=== PATIENT | female | born 1950 | race Two or more races ===

== ENCOUNTER 2019-04-22 20:53 | Emergency (ER) | payer MEDICARE, MEDICAID ==
[~2019-04-22] VITALS: Ht 154.9 cm; Wt 45.4 kg
[2019-04-22 21:21] VITALS: BP 179/82
--- NOTE | 2019-04-22 21:34 | Emergency Room Report ---
History of Present Illness General Chief Complaint: Upper Respiratory Illness Source: Patient, Family Member, EMS Present Illness HPI This is a 68-year-old female with his high blood pressure patient presents with chief complaint of cough and congestion and shortness of breath. Onset for 6 days now. Getting worse. Coughing is a lot of phlegm. Worse with inspiration. [place] like she cannot breathe and tightness in her throat. No nausea no vomiting. No fever chills. Has chest tightness from the coughing. Allergies: Coded Allergies: No Known Allergies (Unverified , 04/22/19) Patient History Past Medical History: see triage record, old chart reviewed, HTN Past Surgical History: none Pertinent Family History: none Social History: Denies: smoking Now: No Immunizations: other Reviewed Nursing Documentation: PMH: Agreed; PSxH: Agreed Nursing Documentation-PMH Past Medical History: No History, Except For Review of Systems Eye: Denies: eye pain, blurred vision ENT: Denies: ear pain, nose congestion, throat swelling Respiratory: Reports: cough, shortness of breath Cardiovascular: Denies: chest pain, palpitations Gastrointestinal: Denies: abdominal pain, diarrhea, nausea, vomiting Musculoskeletal: Denies: back pain, joint pain Skin: Denies: rash Neurological: Denies: headache, numbness Endocrine: Denies: increased thirst, increased urine Hematologic/Lymphatic: Denies: easy bruising All Other Systems: negative except mentioned in HPI Physical Exam Vital Signs Date Time Temp Pulse Resp B/P (MAP) Pulse Ox O2 Delivery O2 Flow Rate FiO2 04/22/19 20:48 97.9 98 16 179/82 (114) 92 04/22/19 21:21 Room Air Vitals with high blood pressure Sp02 EP Interpretation: reviewed, normal General Appearance: well appearing, no apparent distress, alert Head: normocephalic, atraumatic Eyes: bilateral eye PERRL, bilateral eye EOMI ENT: hearing grossly normal, normal pharynx Neck: full range of motion, supple, no meningismus Respiratory: chest non-tender, lungs clear, normal breath sounds, decreased breath sounds, other - Coughing with inspiration Cardiovascular #1: regular rate, rhythm, no murmur Gastrointestinal: normal bowel sounds, non tender, no mass, no organomegaly, no bruit, non-distended Musculoskeletal: back normal, gait/station normal, normal range of motion Psychiatric: anxious Medical Decision Making Diagnostic Impression: Primary Impression: Dyspnea Qualified Codes: R06.00 - Dyspnea, unspecified Additional Impressions: Cough Small airways disease ER Course Patient presents with shortness of breath. No evidence of ACS, PE, dissection to name a few. Blood pressure much improved. She was very anxious and much improved on Ativan. She says she felt better after breathing treatment. When she is sleeping her oxygenation went down to 88 to 90% on room air. CT scan of the chest negative for PE. It did show mild centrilobular emphysema. 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 She herself does not smoke. EKG Diagnostic Results Rate: normal Rhythm: NSR ST Segments: no acute changes Rhythm Strip Diag. Results EP Interpretation: yes Rate: 69 Rhythm: NSR, no PVC's, no ectopy Chest X-Ray Diagnostic Results Chest X-Ray Diagnostic Results : Chest X-Ray Ordered: Yes # of Views/Limited/Complete: 1 View Indication: Shortness of Breath Interpretation: no consolidation, no effusion, no pneumothorax, other - atelectasis at bases Impression: Other - atelectasis Electronically Signed by: Brady Garcia MD CT/MRI/US Diagnostic Results CT/MRI/US Diagnostic Results : Imaging Test Ordered: CT chest Impression Read by radiologist. Negative for PE. Mild cardiomegaly. Mild bilateral centrilobular emphysema. Multiple cluster of bilateral tiny centrilobular nodules most consistent with small airway disease. Last Vital Signs Date Time Temp Pulse Resp B/P (MAP) Pulse Ox O2 Delivery O2 Flow Rate FiO2 04/22/19 21:21 97.9 98 16 179/82 92 Room Air Status: improved Disposition: HOME, SELF-CARE Condition: Improved Scripts Azithromycin* (ZITHROMAX*) 250 Mg Tablet 250 MG ORAL DAILY, #6 TAB 0 Refills Take two tables once daily for 1 day, then one tablet once daily for 4 days. Prov: Brady Garcia MD 04/23/19 Prednisone* (PREDNISONE*) 20 Mg Tablet 40 MG ORAL DAILY, #10 TAB Prov: Brady Garcia MD 04/23/19 Albuterol Sulfate* (ALBUTEROL SULFATE MDI*) 8.5 Gm Hfa.aer.ad 2 PUFF INH Q4H PRN for cough/wheezing, #1 EA 0 Refills Prov: Brady Garcia MD 04/23/19 Patient Instructions: Upper Respiratory Infection, Adult Additional Instructions: Follow-up with your doctor in 2 days for recheck. Return if worse. Brady Garcia MD Apr 22, 2019 21:34
[2019-04-22 21:43] LABS: BASOPHILS % (AUTO) 1.4 % (0.0-2.0); HEMATOCRIT 42.4 % (37.0-47.0); HEMOGLOBIN 14.8 G/DL (12.0-16.0); LYMPHOCYTES % (AUTO) 34.7 % (20.0-45.0); MEAN CORPUSCULAR VOLUME 89 FL (80-99); NEUTROPHILS % (AUTO) 54.9 % (45.0-75.0); PLATELET COUNT 250 K/UL (150-450); RED BLOOD COUNT 4.77 M/UL (4.20-5.40); RED CELL DISTRIBUTION WIDTH 10.4 % (11.6-14.8); WHITE BLOOD COUNT 11.1 K/UL (4.8-10.8)
[2019-04-22] MEDS ORDERED: Albuterol ud Inhalation HHN ONE (21:45)
[2019-04-22] MEDS ORDERED: LORazepam Inj 2mg/ml 1ml IV ONE (21:45)
[2019-04-22 21:57] LABS: APPEARANCE,URINE CLEAR; BILIRUBIN, URINE NEGATIVE (NEGATIVE); COLOR,URINE PALE YELLOW; GLUCOSE, URINE (UA) NEGATIVE (NEGATIVE); KETONES,URINE NEGATIVE (NEGATIVE); LEUKOCYTE ESTERASE ,URINE NEGATIVE (NEGATIVE); NITRITE,URINE NEGATIVE (NEGATIVE); PH,URINE 7 (4.5-8.0); PROTEIN,URINE NEGATIVE (NEGATIVE); UROBILINOGEN,URINE NORMAL MG/DL (0.0-1.0)
[2019-04-22 22:22] LABS: ANION GAP 10 mmol/L (5-15); BLOOD UREA NITROGEN 14 mg/dL (7-18); CALCIUM 8.9 MG/DL (8.5-10.1); CARBON DIOXIDE 26 MMOL/L (21-32); CHLORIDE 98 MMOL/L (98-107); CREATININE 0.8 MG/DL (0.55-1.30); POTASSIUM 3.5 MMOL/L (3.5-5.1); SODIUM 134 MMOL/L (136-145)
[2019-04-22 22:33] LABS: ALANINE AMINOTRANSFERASE 23 U/L (12-78); ALBUMIN 3.7 G/DL (3.4-5.0); ALBUMIN/GLOBULIN RATIO 0.8 (1.0-2.7); ALKALINE PHOSPHATASE 83 U/L (46-116); ASPARTATE AMINO TRANSFERASE 27 U/L (15-37); BILIRUBIN,TOTAL 0.4 MG/DL (0.2-1.0)
[2019-04-22] MEDS ORDERED: UNOBMED (22:52)
[2019-04-22] MEDS ORDERED: Omnipaue 350mg/ml 100ml vial INJ PRN (23:00)
[2019-04-22 23:14] VITALS: BP 140/65
--- NOTE | 2019-04-22 23:52 | Diagnostic Imaging Report ---
Indication: Shortness of breath Technique: Continuous helical transaxial imaging of the chest was obtained from the thoracic inlet to the upper abdomen during rapid intravenous contrast administration. Arterial phase of enhancement obtained. Coronal 2-D reformats were also obtained and maximum intensity projection images in multiple planes. Study obtained in a Siemens sensation [address] Automatic Exposure Control was utilized. Total Dose length Product (DLP): [address] Dose Index Volume (CTDIvol): 90.90 mGy Comparison: None Findings: Pulmonary artery is a well opacified. The aorta is mildly ectatic. Mild patchy groundglass opacities demonstrated within the lungs nonspecific in nature. No adenopathy seen. The visualized part of the upper abdomen is unremarkable. IMPRESSION: No evidence of pulmonary embolus, aortic dissection or aneurysm. Mild atherosclerotic vascular disease noted. Mild groundglass opacification of the lungs nonspecific. Findings could be due to mild interstitial edema or could be inflammatory. Recommend follow-up chest x-ray and clinical correlation. The CT scanner at [facility] is accredited by the [employer] and the scans are performed using dose optimization techniques as appropriate to a performed exam including Automatic Exposure control.
[2019-04-23] MEDS ORDERED: ALBUTEROL SULF8.5 GM INH (00:08)
[2019-04-23] MEDS ORDERED: ZITHROMAX250 MG ORAL (00:08)
[2019-04-23] MEDS ORDERED: PREDNISONE20 MG ORAL (00:08)
[2019-04-23] MEDS ORDERED: Solu-MEDROL 125mg Inj IVP ONE (00:15)
[2019-04-23] MEDS ORDERED: Albuterol ud Inhalation HHN ONE (00:15)
[2019-04-23] MEDS ORDERED: cefTRIAXone 1 GM in NS 55 ML IVPB ONE (00:15)
[2019-04-23 00:50] VITALS: BP 140/65
--- NOTE | 2019-04-23 12:55 | Diagnostic Imaging Report ---
Indication: Dyspnea Comparison: None A single view chest radiograph was obtained. Findings: Lung volumes are low. Heart is borderline enlarged. Basilar infiltrates versus atelectasis demonstrated with ill-defined interstitial type densities noted and prominent at the bases. The bones are osteopenic. IMPRESSION: Interstitial prominence at the lung bases. Pneumonia not excluded. Correlate clinically
== END 2019-04-23 00:50 | disposition home or self-care (01) ==
LOC: EDBD 20:53 → EMR 23:59
DX: R06.00 Dyspnea, unspecified (principal); R05 Cough; J98.8 Other specified respiratory disorders
CPT/HCPCS: 36415; 71045; 71275; 80053; 81003; 83880; 84484; 85025; 93005; 94640; 94664; 96361; 96365; 96375; 99284; J0696; J1940; J2930; Q9967; J7030

== ENCOUNTER 2019-11-25 21:06 | Emergency (ER) | payer MEDICARE, MEDICAID ==
[~2019-11-25] VITALS: Ht 162.6 cm; Wt 59.0 kg
[~2019-11-25 21:06] MED LIST: ALBUTEROL SULF8.5 GM INH; PREDNISONE20 MG ORAL; UNOBMED; ZITHROMAX250 MG ORAL
[2019-11-25 21:43] VITALS: BP 163/87
[2019-11-25] MEDS ORDERED: Omnipaque-300 100ml vial INJ ONE (22:15)
--- NOTE | 2019-11-25 22:41 | Emergency Room Report ---
History of Present Illness General Chief Complaint: Chest Pain Source: Patient (Acosta Buckner MD) Present Illness HPI Patient is a 69-year-old female who presents for increased chest pain. Patient had onset of symptoms several months ago. Associated shortness of breath and weight loss. Had previous CT imaging which showed some interstitial lung disease. Reports having weight loss. Had previous imaging studies at this facility. Increased chest discomfort. Some difficulty with swallowing. (Acosta Buckner MD) Allergies: Coded Allergies: No Known Allergies (Unverified , 04/22/19) COVID-19 Screening Contact w/high risk pt: No Recent Travel to affected area: No Experienced COVID-19 symptoms?: No COVID-19 symptoms experienced: Shortness of Breath COVID-19 Testing performed G[employer] STATION CLERK: No (Acosta Buckner MD) Patient History Past Medical History: see triage record Last Menstrual Period: na Reviewed Nursing Documentation: PMH: Agreed; PSxH: Agreed (Acosta Buckner MD) Nursing Documentation-PMH Hx Hypertension: Yes Hx COPD: Yes - bronchitis (Acosta Buckner MD) Review of Systems All Other Systems: negative except mentioned in HPI (Acosta Buckner MD) Physical Exam Vital Signs Date Time Temp Pulse Resp B/P (MAP) Pulse Ox O2 Delivery O2 Flow Rate FiO2 11/25/19 21:07 98.1 81 18 175/96 (122) 95 Room Air Sp02 EP Interpretation: reviewed, normal General Appearance: normal inspection, alert, GCS 15, Chronically Ill Head: atraumatic ENT: normal ENT inspection, hearing grossly normal, normal voice Neck: normal inspection, full range of motion, supple, no bony tend Respiratory: normal inspection, lungs clear, normal breath sounds, no respiratory distress, no retraction, no wheezing Cardiovascular #1: regular rate, rhythm, no edema Gastrointestinal: normal inspection, normal bowel sounds, non tender, soft, no guarding, no hernia Genitourinary: no CVA tenderness Musculoskeletal: normal inspection, back normal, normal range of motion Neurologic: alert, motor strength/tone normal, nurse private duty III-XII nml as tested, responsive, speech normal, normal inspection Psychiatric: normal inspection, judgement/insight normal, mood/affect normal (Acosta Buckner MD) Medical Decision Making Diagnostic Impression: Primary Impression: Chest pain Qualified Codes: R07.9 - Chest pain, unspecified ER Course Presented for shortness of breath. Differential diagnosis include was not limited to myocardial infarction, pneumonia, among others. EKG interpreted by me showed normal sinus rhythm with a rate of [address] or T wave changes. CT imaging was ordered due to patient's prior history of lung abnormalities. Patient does not have any recent fever suggest coronavirus infection.Patient appears to be clinically stable however given the patient's shortness of breath imaging was ordered. Patient was endorsed to for further evaluation and follow-up on CT imaging. Patient appears to be clinically stable. (Acosta Buckner MD) ER Course Patient presents with chest pain. She is signed out to me pending CT scan report. Labs unremarkable. CT scan showed chronic changes no acute process. No PE. Will discharge home. (Brady Garcia MD) EKG Diagnostic Results Rate: normal Rhythm: NSR ST Segments: no acute changes (Acosta Buckner MD) CT/MRI/US Diagnostic Results CT/MRI/US Diagnostic Results : Imaging Test Ordered: CT chest Impression Read by radiologist. No PE or dissection. Right lung small nodular densities. May be chronic versus infection/inflammation. (Brady Garcia MD) Last Vital Signs Date Time Temp Pulse Resp B/P (MAP) Pulse Ox O2 Delivery O2 Flow Rate FiO2 11/25/19 21:43 98.1 18 163/87 95 Room Air 11/25/19 21:43 81 (Acosta Buckner MD) Status: improved (Brady Garcia MD) Disposition: HOME, SELF-CARE Condition: Stable Scripts Ibuprofen* (MOTRIN*) 600 Mg Tablet 600 MG ORAL Q6H PRN for FOR PAIN, #20 TAB 0 Refills Prov: Brady Garcia MD 11/25/19 Albuterol Sulfate* (Albuterol Sulfate Hfa*) 8.5 Gm Hfa.aer.ad 2 PUFF INH Q4H, #1 INH Prov: Brady Garcia MD 11/25/19 Referrals: NON PHYSICIAN (PCP) Patient Instructions: Nonspecific Chest Pain Additional Instructions: Follow-up with your doctor in 7 days. Return if symptoms worsen. Acosta Buckner MD Nov 25, 2019 22:41 Brady Garcia MD Nov 25, 2019 23:54
[2019-11-25 22:49] LABS: ANION GAP 10 mmol/L (5-15); BLOOD UREA NITROGEN 6 mg/dL (7-18); CALCIUM 8.8 MG/DL (8.5-10.1); CARBON DIOXIDE 26 MMOL/L (21-32); CHLORIDE 105 MMOL/L (98-107); CREATININE 0.8 MG/DL (0.55-1.30); POTASSIUM 3.5 MMOL/L (3.5-5.1); SODIUM 141 MMOL/L (136-145)
[2019-11-25 23:01] LABS: ALANINE AMINOTRANSFERASE 19 U/L (12-78); ALBUMIN 3.5 G/DL (3.4-5.0); ALBUMIN/GLOBULIN RATIO 0.9 (1.0-2.7); ALKALINE PHOSPHATASE 70 U/L (46-116); ASPARTATE AMINO TRANSFERASE 22 U/L (15-37); BILIRUBIN,TOTAL 0.3 MG/DL (0.2-1.0)
[2019-11-25 23:06] LABS: BASOPHILS % (AUTO) 1.2 % (0.0-2.0); EOSINOPHILS % (AUTO) 1.2 % (0.0-3.0); HEMATOCRIT 41.9 % (37.0-47.0); HEMOGLOBIN 13.5 G/DL (12.0-16.0); LYMPHOCYTES % (AUTO) 35.1 % (20.0-45.0); MEAN CORPUSCULAR VOLUME 99 FL (80-99); MONOCYTES % (AUTO) 8.2 % (1.0-10.0); NEUTROPHILS % (AUTO) 54.2 % (45.0-75.0); PLATELET COUNT 239 K/UL (150-450); RED BLOOD COUNT 4.24 M/UL (4.20-5.40); RED CELL DISTRIBUTION WIDTH 12.9 % (11.6-14.8); WHITE BLOOD COUNT 8.5 K/UL (4.8-10.8)
--- NOTE | 2019-11-25 23:40 | Diagnostic Imaging Report ---
ADDENDUM - Added by Jerel Fletcher M.D. on 11/30/2019 7:56 PM (-07:00) Additional information: Scattered right lung tiny nodular densities are new compared to prior, and are likely infectious/inflammatory or chronic. Only if clinically indicated, nonemergent followup may be performed in 12 months to ensure stability or resolution. EXAM: CT Chest With Intravenous Contrast CLINICAL HISTORY: CP TECHNIQUE: Axial computed tomography images of the chest with intravenous contrast. CTDI is 43 mGy and DLP is 138 mGy-cm. One or more of the following dose reduction techniques were used: automated exposure control, adjustment of the mA and/or kV according to patient size, use of iterative reconstruction technique. COMPARISON: 04/22/2019. FINDINGS: Lungs: Right lung small nodular densities which may be chronic versus infection/inflammation. Neoplasm less likely, followup as clinically indicated. Right middle lobe mild atelectasis/bronchiectasis. Pleural space: Unremarkable. No pneumothorax. No significant effusion. Heart: Unremarkable. Bones/joints: Unremarkable. No acute fracture. Soft tissues: Unremarkable. Vasculature: No PE or aortic dissection. Lymph nodes: Unremarkable. IMPRESSION: 1. No PE or aortic dissection. 2. Right lung small nodular densities which may be chronic versus infection/inflammation. Neoplasm less likely, followup as clinically indicated.
[2019-11-25] MEDS ORDERED: IBUPROFEN600 M1 ORAL (23:53)
[2019-11-25] MEDS ORDERED: ALBUTEROL SULF8.5 G1 INH (23:53)
[2019-11-26] MEDS ORDERED: Albuterol ud Inhalation HHN ONE
[2019-11-26 00:30] VITALS: BP 163/87
== END 2019-11-26 00:30 | disposition home or self-care (01) ==
LOC: EMR 21:40
DX: R07.9 Chest pain, unspecified (principal); I10 Essential (primary) hypertension; J44.9 Chronic obstructive pulmonary disease, unspecified
CPT/HCPCS: 36415; 71260; 80053; 83690; 83880; 84484; 85025; 85379; 86140; 93005; 99284; Q9967

== ENCOUNTER 2020-01-01 14:43 | Emergency (ER) | payer MEDICARE, MEDICAID ==
[~2020-01-01] VITALS: Ht 157.5 cm; Wt 55.8 kg
[~2020-01-01 14:43] MED LIST changes: +ALBUTEROL SULF8.5 G1 INH; +IBUPROFEN600 M1 ORAL
--- NOTE | 2020-01-01 15:05 | NUR ---
ED Nurse Note: Pt walked in from home c/o increased left cheek pain over 3 months. Pt has difficulty swallowing and eating x 1 week. Pt seen here recently for same problem. Respirations even and unlabored on room air. Vitals stable as documented. A+Ox4, speaking in full sentences
[2020-01-01] MEDS ORDERED: Omnipaque-300 100ml vial INJ PRN (15:15)
[2020-01-01 15:22] VITALS: BP 141/74
[2020-01-01 16:00] LABS: BASOPHILS % (AUTO) 0.8 % (0.0-2.0); EOSINOPHILS % (AUTO) 0.4 % (0.0-3.0); HEMATOCRIT 43.3 % (37.0-47.0); LYMPHOCYTES % (AUTO) 26.2 % (20.0-45.0); MEAN CORPUSCULAR VOLUME 99 FL (80-99); MONOCYTES % (AUTO) 6.1 % (1.0-10.0); NEUTROPHILS % (AUTO) 66.6 % (45.0-75.0); PLATELET COUNT 235 K/UL (150-450); RED BLOOD COUNT 4.38 M/UL (4.20-5.40); RED CELL DISTRIBUTION WIDTH 12.4 % (11.6-14.8); WHITE BLOOD COUNT 9.1 K/UL (4.8-10.8)
[2020-01-01 16:02] LABS: ANION GAP 12 mmol/L (5-15); BLOOD UREA NITROGEN 11 mg/dL (7-18); CALCIUM 9.2 MG/DL (8.5-10.1); CARBON DIOXIDE 27 MMOL/L (21-32); CHLORIDE 102 MMOL/L (98-107); CREATININE 0.8 MG/DL (0.55-1.30); POTASSIUM 3.5 MMOL/L (3.5-5.1); SODIUM 141 MMOL/L (136-145)
[2020-01-01 16:15] LABS: ALANINE AMINOTRANSFERASE 24 U/L (12-78); ALBUMIN 3.9 G/DL (3.4-5.0); ALKALINE PHOSPHATASE 59 U/L (46-116); ASPARTATE AMINO TRANSFERASE 28 U/L (15-37); BILIRUBIN,TOTAL 0.6 MG/DL (0.2-1.0)
--- NOTE | 2020-01-01 16:23 | Diagnostic Imaging Report ---
Indication: Chest pain Technique: One view of the chest Comparison: 04/22/2019 Findings: Lungs and pleural spaces are clear. The heart size is normal. The aorta is tortuous. No significant change Impression: No acute process
--- NOTE | 2020-01-01 16:27 | Diagnostic Imaging Report ---
Indications: Left cheek pain, increased over past 3 months Technique: Spiral images obtained through the facial bones. No IV contrast utilized. Multiplanar reconstructions were generated.Total dose length product 297 mGycm. CTDIvol(s) 15 mGy. Dose reduction achieved using automated exposure control Comparison: none Findings: No acute fractures. No significant soft tissue swelling. Patient is edentulous with extensive dental prosthetic material present. Foreign body, presumably related to dental surgery, as seen within the heart palate at and to the right of midline. The sinuses are clear. The visualized orbits are unremarkable. The visualized intracranial structures are unremarkable. Impression: No acute bony trauma. No findings to explain stated clinical history of left sheet pain Dental prosthetic material, as described The CT scanner at [facility] is accredited by the [employer] and the scans are performed using protocols designed to limit radiation exposure to as low as reasonably achievable to attain images of sufficient resolution adequate for diagnostic evaluation.
--- NOTE | 2020-01-01 16:31 | Emergency Room Report ---
History of Present Illness General Chief Complaint: Pain Source: Patient Present Illness HPI 69-year-old female with no known significant past medical history here complaining of several months of left-sided facial pain and sensitive to touch. Denies any recent dental work. Denies any cough and congestion, headache and dizziness. Denies any head injury. Denies any tinnitus. Also reports that on the same side is really hard for her to swallow as patient feels a lot of tightening in the throat. Denies history of any allergies. Denies any anaphylaxis. Also reports that she feels a burning sensation every time she swallows even water at is going down. Also has some radiating chest pain epigastric. Denies any diffuse abdominal pain, nausea vomiting, diarrhea constipation. Denies pleuritic chest pain. Denies any hematemesis. Patient is afebrile, and vital signs are otherwise within normal limits. Patient complains of being very sensitive to a small touch to the left side of face. Denies any blurry vision. Allergies: Coded Allergies: No Known Allergies (Unverified , 04/22/19) COVID-19 Screening Contact w/high risk pt: No Recent Travel to affected area: No Experienced COVID-19 symptoms?: No COVID-19 symptoms experienced: Shortness of Breath COVID-19 Testing performed TILTROTOR CREW CHIEF: No Patient History Past Medical History: see triage record Past Surgical History: none Pertinent Family History: none Now: No Immunizations: UTD Reviewed Nursing Documentation: PMH: Agreed; PSxH: Agreed Nursing Documentation-PMH Past Medical History: No History, Except For Hx Hypertension: Yes Hx COPD: Yes - bronchitis Review of Systems All Other Systems: negative except mentioned in HPI Physical Exam Vital Signs Date Time Temp Pulse Resp B/P (MAP) Pulse Ox O2 Delivery O2 Flow Rate FiO2 01/01/20 14:47 98.2 92 18 143/78 (99) 94 Room Air Sp02 EP Interpretation: reviewed, normal General Appearance: mild distress Head: normocephalic, atraumatic Eyes: bilateral eye normal inspection, bilateral eye PERRL ENT: hearing grossly normal, normal pharynx, no angioedema, normal voice Neck: full range of motion, supple/symm/no masses Respiratory: chest non-tender, lungs clear, normal breath sounds, no rhonchi, no retraction, no wheezing, speaking full sentences Cardiovascular #1: regular rate, rhythm, no edema, no murmur Cardiovascular #2: 2+ carotid (R), 2+ carotid (L), 2+ radial (R), 2+ radial (L) Gastrointestinal: non tender, soft Rectal: deferred Genitourinary: no CVA tenderness Musculoskeletal: back normal, no calf tenderness Neurologic: alert, motor strength/tone normal, oriented x3, sensory intact, responsive, speech normal Psychiatric: judgement/insight normal, memory normal, mood/affect normal, no suicidal/homicidal ideation Skin: no rash Lymphatic: no adenopathy Medical Decision Making PA Attestation All diagnosis and treatment plans were discussed and reviewed by my supervising physician Dr. Mtz Diagnostic Impression: Primary Impression: Trigeminal neuralgia Additional Impressions: Esophagitis Diverticulosis ER Course 69-year-old female with no known significant past medical history here complaining of several months of left-sided facial pain and sensitive to touch. Denies any recent dental work. Denies any cough and congestion, headache and dizziness. Denies any head injury. Denies any tinnitus. Also reports that on the same side is really hard for her to swallow as patient feels a lot of tightening in the throat. Denies history of any allergies. Denies any anaphylaxis. Also reports that she feels a burning sensation every time she swallows even water at is going down. Also has some radiating chest pain epigastric. Denies any diffuse abdominal pain, nausea vomiting, diarrhea constipation. Denies pleuritic chest pain. Denies any hematemesis. Patient is afebrile, and vital signs are otherwise within normal limits. Patient complains of being very sensitive to a small touch to the left side of face. Denies any blurry vision. Ddx considered but are not limited to: Trigeminal neuralgia, sinusitis, esophagitis, CA, gastritis Vital signs: are WNL, pt. is afebrile H&PE are most consistent with: Trigeminal neuralgia, esophagitis, diverticulosis without diverticulitis ORDERS: Chest pain order set, CT chest abdomen pelvis with contrast, CT facial no contrast, Pepcid ER intervention: NS bolus DISCHARGE: At this time pt. is stable for d/c to home. Will provide printed patient care instructions, and any necessary prescriptions. Care plan and follow up instructions have been discussed with the patient prior to discharge. Take medication as directed, follow-up with your primary care provider, increase oral hydration, avoid spicy acidic food, if worsening symptoms in the emergency room EKG Diagnostic Results Rate: normal Rhythm: NSR ST Segments: no acute changes Other Impression No acute ST changes Chest X-Ray Diagnostic Results Chest X-Ray Diagnostic Results : Chest X-Ray Ordered: Yes # of Views/Limited/Complete: 1 View Indication: Chest Pain EP Interpretation: Yes PA Xray: Interpretation reviewed, by supervising MD, and agrees with findings. Interpretation: no consolidation, no effusion, no pneumothorax Impression: No acute disease Electronically Signed by: Cynthia Campos PA-C CT/MRI/US Diagnostic Results CT/MRI/US Diagnostic Results #1: Imaging Test Ordered: CT facial noncontrast Impression No acute changes, no bony fracture, no abscess formation CT/MRI/US Diagnostic Results #2: Imaging Test Ordered: CT abdomen pelvis chest with contrast oral and IV Impression FINDINGS: Lung bases: Unremarkable. No mass. No consolidation. ABDOMEN: Liver: Unremarkable. No mass. Gallbladder and bile ducts: Unremarkable. No calcified stones. No ductal dilation. Pancreas: Unremarkable. No mass. No ductal dilation. Spleen: Unremarkable. No splenomegaly. Adrenals: Unremarkable. No mass. Kidneys and ureters: Unremarkable. No solid mass. No hydronephrosis. Stomach and bowel: Colonic diverticulosis without acute diverticulitis. Rapid contrast transit of the GI tract could be incidental or could be seen in an infectious or inflammatory enteritis. No obstruction. PELVIS: Appendix: No findings to suggest acute appendicitis. Bladder: Unremarkable. No mass. Reproductive: Unremarkable as visualized. ABDOMEN and PELVIS: Intraperitoneal space: Unremarkable. No free air. No significant fluid collection. Bones/joints: Osteopenia. No acute fracture. No dislocation. Soft tissues: Unremarkable. Vasculature: Unremarkable. No abdominal aortic aneurysm. Lymph nodes: Unremarkable. No enlarged lymph nodes. IMPRESSION: 1. Rapid contrast transit of the GI tract could be incidental or could be seen in an infectious or inflammatory enteritis. 2. Otherwise no acute abnormality definitively identified to account for patient presentation. 3. Colonic diverticulosis without acute diverticulitis. Last Vital Signs Date Time Temp Pulse Resp B/P (MAP) Pulse Ox O2 Delivery O2 Flow Rate FiO2 01/01/20 15:22 98.2 72 18 141/74 95 Room Air Disposition: HOME, SELF-CARE Condition: Stable Referrals: [facility],REFERRING (PCP) Patient Instructions: Esophagitis, Trigeminal Neuralgia Additional Instructions: Take medication as directed, follow-up with your primary care provider, increase oral hydration, if worsening symptoms return to the emergency Cynthia Parada Jan 01, 2020 16:31
--- NOTE | 2020-01-01 17:18 | NUR ---
ED Nurse Note: Pt in radiology
--- NOTE | 2020-01-01 17:28 | NUR ---
ED Nurse Note: Pt back from CT with no signs of distress. Respirations even and unlabored on room air.
--- NOTE | 2020-01-01 18:00 | Diagnostic Imaging Report ---
EXAM: CT Chest With Intravenous Contrast CLINICAL HISTORY: PAIN TECHNIQUE: Axial computed tomography images of the chest with intravenous contrast. CTDI is 40 mGy and DLP is 327 mGy-cm. One or more of the following dose reduction techniques were used: automated exposure control, adjustment of the mA and/or kV according to patient size, use of iterative reconstruction technique. COMPARISON: 11/25/2019 FINDINGS: Lungs: Scattered tree-in-bud nodularity most evident right middle lobe and right lower lobe axial series 8 image 38. Mild right middle lobe consolidation and bronchiectasis. Scattered minimal paraseptal emphysema. Pleural space: Unremarkable. No pneumothorax. No significant effusion. Heart: Unremarkable. No cardiomegaly. No significant pericardial effusion. Bones/joints: Osteopenia. No acute fracture. No dislocation. Soft tissues: Unremarkable. Vasculature: Unremarkable. No thoracic aortic aneurysm. Lymph nodes: Unremarkable. No enlarged lymph nodes. IMPRESSION: 1. Scattered findings suggesting infectious or inflammatory bronchiolitis. 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 2. Recommend follow-up unenhanced CT chest in 3 months to document resolution. 3. Otherwise no acute abnormality definitively identified to account for patient presentation. EXAM: CT Abdomen and Pelvis With Intravenous Contrast CLINICAL HISTORY: PAIN TECHNIQUE: Axial computed tomography images of the abdomen and pelvis with intravenous contrast. CTDI is 40 mGy and DLP is 327 mGy-cm. One or more of the following dose reduction techniques were used: automated exposure control, adjustment of the mA and/or kV according to patient size, use of iterative reconstruction technique. Coronal and sagittal reformatted images were created and reviewed. COMPARISON: No relevant prior studies available. FINDINGS: Lung bases: Unremarkable. No mass. No consolidation. ABDOMEN: Liver: Unremarkable. No mass. Gallbladder and bile ducts: Unremarkable. No calcified stones. No ductal dilation. Pancreas: Unremarkable. No mass. No ductal dilation. Spleen: Unremarkable. No splenomegaly. Adrenals: Unremarkable. No mass. Kidneys and ureters: Unremarkable. No solid mass. No hydronephrosis. Stomach and bowel: Colonic diverticulosis without acute diverticulitis. Rapid contrast transit of the GI tract could be incidental or could be seen in an infectious or inflammatory enteritis. No obstruction. PELVIS: Appendix: No findings to suggest acute appendicitis. Bladder: Unremarkable. No mass. Reproductive: Unremarkable as visualized. ABDOMEN and PELVIS: Intraperitoneal space: Unremarkable. No free air. No significant fluid collection. Bones/joints: Osteopenia. No acute fracture. No dislocation. Soft tissues: Unremarkable. Vasculature: Unremarkable. No abdominal aortic aneurysm. Lymph nodes: Unremarkable. No enlarged lymph nodes. IMPRESSION: 1. Rapid contrast transit of the GI tract could be incidental or could be seen in an infectious or inflammatory enteritis. 2. Otherwise no acute abnormality definitively identified to account for patient presentation. 3. Colonic diverticulosis without acute diverticulitis.
[2020-01-01] MEDS ORDERED: FAMOTIDINE20 MG ORAL (18:41)
[2020-01-01 18:55] VITALS: BP 144/86
--- NOTE | 2020-01-01 18:55 | NUR ---
ER DISCHARGE NOTE: Patient is cleared to be discharged per ERMD, pt is aox4, on room air, with stable vital signs. pt was given dc and prescription instructions, pt was able to verbalize understanding, pt id band and iv site removed without complications. pt is able to ambulate with steady gait. pt took all belongings.
== END 2020-01-01 18:55 | disposition home or self-care (01) ==
LOC: EMR 15:10
DX: G50.0 Trigeminal neuralgia (principal); K20.9 Esophagitis, unspecified; K57.90 Diverticulosis of intestine, part unspecified, without perforation or abscess without bleeding; I10 Essential (primary) hypertension; R07.9 Chest pain, unspecified
CPT/HCPCS: 36415; 70486; 71045; 71260; 74177; 80053; 80307; 83880; 84484; 85025; 85610; 85730; 93005; 96360; 99284; Q9967